=== PATIENT | male | born 1985 | race Caucasian/White ===

== ENCOUNTER 2018-01-26 18:18 | Emergency (ER) | payer OTHER ==
[2018-01-26] MEDS ORDERED: Lidocaine 1% 20 ML MDV INJECT ONE (18:48)
[2018-01-26] MEDS ORDERED: Diphtheria,Pertussis(Acell),Tetanus Vaccine 0.5 ML Syringe IM ONE (18:49)
[2018-01-26] MEDS ORDERED: Lidocaine 1% 50 ML MDV ONE (19:02)
[2018-01-26] MEDS ORDERED: Bacitracin Oint 1 GM U/D Packet TOP ONE (19:29)
--- NOTE | 2018-01-26 19:29 | EDM.PDOC ---
ED HPI GENERAL MEDICAL PROBLEM - General Chief Complaint: Laceration Stated Complaint: LACERATION RT ARM Time Seen by Provider: 01/26/18 19:29 Source of Information: Reports: Patient History Limitations: Reports: No Limitations - History of Present Illness INITIAL COMMENTS - FREE TEXT/NARRATIVE: HISTORY AND PHYSICAL: History of present illness: 32-year-old male presenting emergency department with laceration to the right forearm. 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 After cutting a metal wire he inadvertently caught his right forearm on the cut edge of the wire leading to a laceration on the right arm. He denies any other trauma. States that he had a tetanus update proximate 4 years ago. Currently denies any allergies. On examination there is a 5.5 cm by 0.5 superficial laceration to the left forearm. Review of systems: As per history of present illness and below otherwise all systems reviewed and negative. Past medical history: As per history of present illness and as reviewed below otherwise noncontributory. Surgical history: As per history of present illness and as reviewed below otherwise noncontributory. Social history: No reported history of drug or alcohol abuse. Family history: As per history of present illness and as reviewed below otherwise noncontributory. Physical exam: HEENT: Atraumatic, normocephalic, pupils reactive, negative for conjunctival pallor or scleral icterus, mucous membranes moist, throat clear, neck supple, nontender, trachea midline. Lungs: Clear to auscultation, breath sounds equal bilaterally, chest nontender. Heart: S1S2, regular, negative for clicks, rubs, or JVD. Abdomen: Soft, nondistended, nontender. Negative for masses or hepatosplenomegaly. Negative for costovertebral tenderness. Pelvis: Stable nontender. Genitourinary: Deferred. Rectal: Deferred. Extremities: negative for cords or calf pain. Neurovascular unremarkable. Neuro: Awake, alert, oriented. Cranial nerves II through XII unremarkable. Cerebellum unremarkable. Motor and sensory unremarkable throughout. Exam nonfocal. Diagnostics: [] Therapeutics: 1% lidocaine, 10 noninterrupted sutures, bacitracin Impression: Laceration right forearm Plan: A total of 10 noninterrupted sutures were used to close the wound in normal sterile fashion. Patient was instructed to follow-up in 7-10 days for suture removal. He should keep the area clean and dry. He should return the emergency department if he sees any signs of infection including but not limited to increasing redness, swelling, pain, or purulent drainage. She'll follow up with primary care provider for suture removal or return to emergency department. Patient was discharged in good condition with above instructions. All questions were entertained and answered. 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 [No Known Home Meds] 01/26/18 [History] Past Medical History - Past Surgical History Musculoskeletal Surgical History: Reports: Other (See Below) Other Musculoskeletal Surgeries/Procedures:: ACL SX Social & Family History - Family History Family Medical History: Noncontributory - Tobacco Use Smoking Status *Q: Never Smoker - Recreational Drug Use Recreational Drug Use: No ED ROS GENERAL - Review of Systems Review Of Systems: ROS reveals no pertinent complaints other than HPI. ED EXAM, SKIN/RASH Exam: See Below Course - Vital Signs Last Recorded V/S: Last Vital Signs Temp 98.2 F 01/26/18 18:30 Pulse 111 H 01/26/18 18:30 Resp 16 01/26/18 18:30 BP 138/90 01/26/18 18:30 Pulse Ox 98 01/26/18 18:30 - Orders/Labs/Meds Orders: Active Orders 24 hr Category Date Time Status Vaccines to be Administered [RC] PER UNIT ROUTINE Care 01/26/18 18:49 Active Meds: Medications Discontinued Medications Generic Name Dose Route Start Last Admin Trade Name Mary Ellen PRN Reason Stop Dose Admin Bacitracin 1 dose 01/26/18 19:29 01/26/18 19:33 Bacitracin Oint 1 Gm TOP 01/26/18 19:30 1 dose ONETIME ONE Administration Diphtheria/Tetanus/Acell Pertussis 0.5 ml 01/26/18 18:49 01/26/18 19:28 Adacel IM 01/26/18 18:50 Not Given .ONCE ONE Lidocaine HCl 20 ml 01/26/18 18:48 01/26/18 19:27 Xylocaine 1% INJECT 01/26/18 18:49 Not Given ONETIME ONE Lidocaine HCl Confirm 01/26/18 19:02 01/26/18 19:26 Xylocaine 1% Administered 01/26/18 19:03 50 ml Dose Administration 50 ml .ROUTE .STK-MED ONE Departure - Departure Time of Disposition: 19:43 Disposition: Home, Self-Care 01 Condition: Good Clinical Impression: Laceration - Discharge Information Referrals: PCP,None [Primary Care Provider] - Forms: ED Department Discharge Additional Instructions: My general discharge The following information is given to patients seen in the emergency department who are being discharged to home. This information is to outline your options for follow-up care. We provide all patients seen in our emergency department with a follow-up referral. The need for follow-up, as well as the timing and circumstances, are variable depending upon the specifics of your emergency department visit. If you don't have a primary care physician on staff, we will provide you with a referral. We always advise you to contact your personal physician following an emergency department visit to inform them of the circumstance of the visit and for follow-up with them and/or the need for any referrals to a consulting specialist. The emergency department will also refer you to a specialist when appropriate. This referral assures that you have the opportunity for follow-up care with a specialist. All of these measure are taken in an effort to provide you with optimal care, which includes your follow-up. Under all circumstances we always encourage you to contact your private physician who remains a resource for coordinating your care. When calling for follow-up care, please make the office aware that this follow-up is from your recent emergency room visit. If for any reason you are refused follow-up, please contact the [facility] Emergency Department at and asked to speak to the emergency department charge nurse. [facility] [address] [place] [id number] [address] [id number] Follow-up for suture removal in 7-10 days. Return to emergency department if any new or worsening symptoms. Keep area clean and dry.
== END 2018-01-26 19:40 | disposition home or self-care (01) ==
LOC: MW.ED 18:18
DX: S51.811A Laceration without foreign body of right forearm, initial encounter (principal); S51.812A Laceration without foreign body of left forearm, initial encounter; W23.0XXA Caught, crushed, jammed, or pinched between moving objects, initial encounter; Y99.0 Civilian activity done for income or pay; Z23 Encounter for immunization
CPT/HCPCS: 12002; 99282; 99283